=== PATIENT | female | born 1955 | race Caucasian/White ===

== ENCOUNTER 2017-09-18 11:03 | Outpatient (RCR) | payer OTHER ==
[~2017-09-18 11:03] MED LIST: BYSTOLIC5 MG PO; CALAN80 MG PO; CATAPRES 0.1MG0.1 MG PO; COMBIRESP IH; COMBIVENT INH14.7 GM; CYMBALTA 30MG30 MG PO; DEPAKOTE ER500 MG PO; IMITREX100 MG PO; LASIX 40MG TABL40 MG PO; LEXAPRO 10MG10 MG PO; MAG-OX 400400 MG/TAB PO; MICARDIS80 MG PO; NAPROSYN500 MG PO; NEURONTIN100 MG/CAP PO; NEURONTIN300 MG/CAP PO; PERCOCET 325 MG1 TA2 PO; PHENERGAN 25 TA25 MG PO; PRINIVIL40 MG PO; PROAIR HFA0.09 MG/AC; PROTONIX 40MG T40 MG PO; QVAR0.08 MG/AC IH; SUMATRIPTA6 MG/0.51 SC; ULTRAM 50MG TAB50 MG PO; VENTOLIN0.09 MG IH; VITAMIN B121000 MC2 SL; VITAMIN D5000 IU PO; WELLBUTRIN SR150 M1 PO; ZANAFLEX4 MG PO; ZOLPIDEM10 MG PO
== END 2017-09-29 11:09 | disposition home or self-care (01) ==
LOC: WSOH 11:03
DX: M25.531 Pain in right wrist (principal); X58.XXXA Exposure to other specified factors, initial encounter; Y99.0 Civilian activity done for income or pay; Z87.891 Personal history of nicotine dependence; Z79.899 Other long term (current) drug therapy
CPT/HCPCS: 24091; A6549

== ENCOUNTER 2017-10-02 14:00 | Outpatient (RCR) | payer OTHER | END 2017-12-31 | disposition home or self-care (01) | LOC: WSOH | DX: M25.531 Pain in right wrist (principal); X50.3XXD Overexertion from repetitive movements, subsequent encounter; Y93.E5 Activity, floor mopping and cleaning; Y92.59 Other trade areas as the place of occurrence of the external cause; Y99.0 Civilian activity done for income or pay; F17.210 Nicotine dependence, cigarettes, uncomplicated; Z79.899 Other long term (current) drug therapy ==